=== PATIENT | female | born 1990 | race American Indian/Alaskan Native ===

== ENCOUNTER 2017-05-18 17:47 | Emergency (ER) | payer SELFPAY ==
[2017-05-18 18:13] VITALS: BP 113/71
[2017-05-18 19:02] LABS: Bilirubin,Urine NEG (Negative); Blood,Urine NEG (Negative); Ketones,Urine NEG (Negative); Leukocyte Esterase,Urine MOD (Negative); Mucus,Urine FEW /HPF; Nitrite,Urine NEG (Negative); Protein,Urine <15 mg/dL mg/dL (Negative); Urobilinogen,Urine < 2.0 mg/dL (<2.0)
[2017-05-18 19:34] LABS: Anion Gap 17 mmol/L; BUN/Creatinine Ratio 13.33; Blood Urea Nitrogen 12 mg/dL (7-17); Calcium 9.4 mg/dL (8.4-10.2); Carbon Dioxide 26 mmol/L (22-30); Chloride 104.1 mmol/L (98-107); Glucose 67 mg/dL (65-100); Potassium 4.6 mmol/L (3.6-5.0); Sodium 142 mmol/L (137-145)
[2017-05-18] MEDS ORDERED: ZITHROMAX PO ONE (20:26)
[2017-05-18] MEDS ORDERED: FLAGYL PO ONE (20:27)
[2017-05-18] MEDS ORDERED: XYLOCAINE 1% MPF 5 mL INFILTRATI ONE (20:27)
[2017-05-18] MEDS ORDERED: ROCEPHIN IM ONE (20:27)
[2017-05-18 20:47] LABS: Basophils % (Auto) 0.8 % (0.0-1.8); Eosinophils % (Auto) 0.9 % (0.0-4.3); Hematocrit 36.9 % (30.3-42.9); Hemoglobin 11.6 gm/dl (10.1-14.3); Mean Corpuscular HGB Conc 32 % (30-34); Mean Corpuscular Volume 79 fl (79-97); Platelet Count 234 K/mm3 (140-440); Red Blood Count 4.67 M/mm3 (3.65-5.03); White Blood Count 6.3 K/mm3 (4.5-11.0)
[2017-05-18 20:49] LABS: Mean Corpuscular Hemoglobin 25 pg (28-32)
--- NOTE | 2017-05-18 20:58 | Emergency Department Report ---
Entered by PILAR HANSEN, acting as scribe for HANNAH LOPEZ PA. ED Female HPI - General Chief complaint: Abdominal Pain Stated complaint: STD SCREENING Time Seen by Provider: 05/18/17 19:30 Source: patient Mode of arrival: Ambulatory Limitations: No Limitations - History of Present Illness Initial comments: 26 y/o female with no significant PMHx presents to the ED c/o urinary frequency and intermittent pelvic pain that began 4 weeks ago. Aggravated with movement and alleviated with nothing. Denies vaginal bleeding, vaginal discharge, fever, chills, nausea, vomiting, and dysuria. Patient also requests to get tested for STDs. Notes she is sexually active without protection with a known partner. Reports her partner was seen in this ED today for STD treatment. LMP 2016. NKDA. CREWS Complaint: pelvic pain, other (urinary frequency) Onset/Timin -: week(s) Location: other (pelvic) Radiation: non-radiating Severity: mild Severity scale (0 -10): 3 Quality: aching Consistency: intermittent Improves with: none Worsens with: movement Last Menstrual Period: 03/29/17 EDC: 01/03/18 Associated Symptoms: denies other symptoms, abdominal pain (intermittent pelvic pain), other (urinary frequency). denies: vaginal discharge, vaginal bleeding, nausea/vomiting, fever/chills, headaches, loss of appetite, dysuria, hematuria, rash, seizure, syncope, weakness - Related Data Sexually active: Yes Previous Rx's Medication Instructions Recorded Last Taken Type Permethrin 5% [Acticin 5% CREAM] 1 applicatio TP ONCE #1 tube 07/03/15 Unknown Rx diphenhydrAMINE [Benadryl CAP] 25 mg PO Q6HR PRN #30 capsule 07/03/15 Unknown Rx oxyCODONE /ACETAMINOPHEN [Percocet 1 tab PO Q6HR PRN #30 tablet 01/06/16 Unknown Rx 5/325] Acetaminophen/Codeine [Tylenol #3] 1 tab PO Q6H PRN #15 tab 02/01/16 Unknown Rx HYDROcodone/APAP 7.5-325 [[place] 1 each PO QHS #5 tablet 02/01/16 Unknown Rx 7.5/325] Ibuprofen [Motrin 600 MG tab] 600 mg PO Q8H PRN #20 tablet 05/18/17 Unknown Rx Sulfamethoxazole/Trimethoprim 1 each PO BID #20 tablet 05/18/17 Unknown Rx [Bactrim DS TAB] Allergies Allergy/AdvReac Type Severity Reaction Status Date / Time No Known Allergies Allergy Verified 07/03/15 15:52 ED Review of Systems Comment: All other systems reviewed and negative Constitutional: denies: chills, diaphoresis, fever, weakness Eyes: denies: eye pain, eye discharge, vision change ENT: denies: ear pain, throat pain Respiratory: denies: cough, shortness of breath, wheezing Cardiovascular: denies: chest pain, palpitations Endocrine: no symptoms reported Gastrointestinal: abdominal pain (intermittent pelvic pain). denies: nausea, vomiting, diarrhea Genitourinary: urgency, frequency. denies: dysuria, hematuria, discharge, abnormal menses, dyspareunia Musculoskeletal: denies: back pain, joint swelling, arthralgia Skin: denies: rash, lesions Neurological: denies: headache, weakness, numbness, paresthesias Hematological/Lymphatic: denies: easy bleeding, easy bruising ED Past Medical Hx - Past Medical History Previous Medical History?: No - Surgical History Past Surgical History?: No - Social History Smoking Status: Current Every Day Smoker Substance Use Type: Alcohol, Marijuana - Medications Home Medications: Home Medications Medication Instructions Recorded Confirmed Last Taken Type Permethrin 5% [Acticin 5% CREAM] 1 applicatio TP ONCE #1 tube 07/03/15 Unknown Rx diphenhydrAMINE [Benadryl CAP] 25 mg PO Q6HR PRN #30 capsule 07/03/15 Unknown Rx oxyCODONE /ACETAMINOPHEN [Percocet 1 tab PO Q6HR PRN #30 tablet 01/06/16 Unknown Rx 5/325] Acetaminophen/Codeine [Tylenol #3] 1 tab PO Q6H PRN #15 tab 02/01/16 Unknown Rx HYDROcodone/APAP 7.5-325 [[place] 1 each PO QHS #5 tablet 02/01/16 Unknown Rx 7.5/325] Ibuprofen [Motrin 600 MG tab] 600 mg PO Q8H PRN #20 tablet 05/18/17 Unknown Rx Sulfamethoxazole/Trimethoprim 1 each PO BID #20 tablet 05/18/17 Unknown Rx [Bactrim DS TAB] ED Physical Exam - General Limitations: No Limitations General appearance: alert, in no apparent distress - Head Head exam: Present: atraumatic, normocephalic - Eye Eye exam: Present: normal appearance, PERRL, EOMI Pupils: Present: normal accommodation - ENT ENT exam: Present: normal exam, mucous membranes moist, normal external ear exam - Neck Neck exam: Present: normal inspection, full ROM. Absent: tenderness, meningismus, lymphadenopathy - Respiratory Respiratory exam: Present: normal lung sounds bilaterally. Absent: respiratory distress, wheezes, rales, rhonchi, stridor, accessory muscle use, decreased breath sounds - Cardiovascular Cardiovascular Exam: Present: regular rate, normal rhythm, normal heart sounds. Absent: systolic murmur, diastolic murmur, rubs, gallop - GI/Abdominal GI/Abdominal exam: Present: soft, normal bowel sounds. Absent: distended, tenderness, guarding, rebound, rigid - Extremities Exam Extremities exam: Present: normal inspection, full ROM - Back Exam Back exam: Present: normal inspection, full ROM. Absent: CVA tenderness (R), CVA tenderness (L) - Neurological Exam Neurological exam: Present: alert, oriented X3 - Psychiatric Psychiatric exam: Present: normal affect, normal mood - Skin Skin exam: Present: warm, dry, intact. Absent: rash ED Course Vital Signs 05/18/17 18:08 Temperature 98.4 F Pulse Rate 89 Respiratory 18 Rate Blood Pressure 113/71 O2 Sat by Pulse 100 Oximetry ED Medical Decision Making - Lab Data Result diagrams: 05/18/17 19:05 05/18/17 19:05 Laboratory Results - last 24 hr 05/18/17 05/18/17 05/18/17 18:30 19:05 19:05 WBC 6.3 RBC 4.67 Hgb 11.6 Hct 36.9 MCV 79 MCH 25 L MCHC 32 RDW 14.0 Plt Count 234 Lymph % (Auto) 27.2 Thomas % (Auto) 8.3 H Eos % (Auto) 0.9 Baso % (Auto) 0.8 Lymph # 1.7 Thomas # 0.5 Eos # 0.1 Baso # 0.0 Seg Neutrophils % 62.8 Seg Neutrophils # 4.0 Carbon Dioxide 26 Anion Gap 17 BUN 12 Creatinine 0.9 Estimated GFR > 60 BUN/Creatinine Ratio 13.33 Glucose 67 Calcium 9.4 HCG, Qual Urine Color Yellow Urine Turbidity Clear Urine pH 7.0 Ur Specific [place] 1.020 Urine Protein <15 mg/dl Urine Glucose (UA) Neg Urine Ketones Neg Urine Blood Neg Urine Nitrite Neg Urine Bilirubin Neg Urine Urobilinogen < 2.0 Ur Leukocyte Esterase Mod Urine WBC (Auto) 12.0 H Urine RBC (Auto) 2.0 U Epithel Cells (Auto) 2.0 Urine Mucus Few 05/18/17 19:05 WBC RBC Hgb Hct MCV MCH MCHC RDW Plt Count Lymph % (Auto) [place] % (Auto) Eos % (Auto) Baso % (Auto) Lymph # Thomas # Eos # Baso # Seg Neutrophils % Seg Neutrophils # Carbon Dioxide Anion Gap BUN Creatinine Estimated GFR BUN/Creatinine Ratio Glucose Calcium HCG, Qual Negative Urine Color Urine Turbidity Urine pH Ur Specific [place] Urine Protein Urine Glucose (UA) Urine Ketones Urine Blood Urine Nitrite Urine Bilirubin Urine Urobilinogen Ur Leukocyte Esterase Urine WBC (Auto) Urine RBC (Auto) U Epithel Cells (Auto) Urine Mucus - Medical Decision Making 26 year-old female presents with urinary tract infection/STD exposure ED course: CBC, BMP, urinalysis, urine test and gonorrhea/chlamydia ordered. Discussed findings with patient. Discussed STD treatment in ED prophylaxis Discussed to follow up with [facility] and her department for further STD testing. 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 Discuss her symptoms return or worsen to return to the ED Vital signs are normal patient is in no acute distress ED Disposition Clinical Impression: Possible exposure to STD, UTI (urinary tract infection) Disposition: - TO HOME OR SELFCARE Is pt being admited?: No Does the pt Need Aspirin: No Condition: Stable Instructions: Sexually Transmitted Diseases (ED), Urinary Tract Infection in Women (ED), Abdominal Pain (ED) Additional Instructions: Follow-up with health department for further STD testing. UA treated for STD prophylaxis the ED today. Particular medications as prescribed for a UTI. Prescriptions: Ibuprofen [Motrin 600 MG tab] 600 mg PO Q8H PRN #20 tablet PRN Reason: Pain Sulfamethoxazole/Trimethoprim [Bactrim DS TAB] 1 each PO BID #20 tablet Referrals: VASQUEZ BOSWELL MD [Primary Care Provider] - 3-5 Days JAY HARDEN MD [Referring] - 3-5 Days [facility] [Outside] - 3-5 Days [facility] [Outside] - 3-5 Days Forms: Accompanied Note, Work/School Release Form(ED) Time of Disposition: 20:35 This documentation as recorded by the JADE coffman JASMINE,accurately reflects the service I personally performed and the decisions made by JOHN álvarez OYINLOLA A, PA.
== END 2017-05-18 21:11 | disposition home or self-care (01) ==
LOC: ED 17:47
DX: N39.0 Urinary tract infection, site not specified (principal); F17.200 Nicotine dependence, unspecified, uncomplicated; F12.90 Cannabis use, unspecified, uncomplicated
CPT/HCPCS: 36415; 80048; 81001; 84703; 85025; 96372; 99283; J0696

== ENCOUNTER 2017-07-15 08:13 | Emergency (ER) | payer SELFPAY ==
[2017-07-15 08:38] LABS: Basophils % (Auto) 0.9 % (0.0-1.8); Eosinophils % (Auto) 1.6 % (0.0-4.3); Hematocrit 35.4 % (30.3-42.9); Hemoglobin 11.3 gm/dl (10.1-14.3); Mean Corpuscular HGB Conc 32 % (30-34); Mean Corpuscular Volume 79 fl (79-97); Platelet Count 258 K/mm3 (140-440); Red Blood Count 4.49 M/mm3 (3.65-5.03); Red Cell Distribution Width 13.6 % (13.2-15.2); White Blood Count 4.9 K/mm3 (4.5-11.0)
[2017-07-15 08:52] LABS: Alanine Aminotransferase 16 units/L (7-56); Albumin 3.9 g/dL (3.9-5); Albumin/Globulin Ratio 1.8 %; Alkaline Phosphatase 54 units/L (35-129); Anion Gap 11 mmol/L; BUN/Creatinine Ratio 12.85; Blood Urea Nitrogen 9 mg/dL (7-17); Carbon Dioxide 27 mmol/L (22-30); Chloride 102.9 mmol/L (98-107); Glucose 95 mg/dL (65-100); Lipase 14 units/L (13-60); Potassium 4.3 mmol/L (3.6-5.0); Sodium 137 mmol/L (137-145); Total Protein 6.1 g/dL (6.3-8.2)
[2017-07-15 08:54] LABS: Mean Corpuscular Hemoglobin 25 pg (28-32)
[2017-07-15 09:44] LABS: Bacteria,Urine 1+ /HPF (Negative); Bilirubin,Urine NEG (Negative); Blood,Urine NEG (Negative); Ketones,Urine NEG (Negative); Leukocyte Esterase,Urine TR (Negative); Mucus,Urine 2+ /HPF; Nitrite,Urine NEG (Negative); Urobilinogen,Urine < 2.0 mg/dL (<2.0)
--- NOTE | 2017-07-15 09:52 | Emergency Department Report ---
Chief Complaint: Abdominal Pain Stated Complaint: PREG, STOMACH CRAMPS, SLIGHT BLEEDING Time Seen by Provider: 07/15/17 09:48 - HPI History of Present Illness: PT states she found out she was on Friday. PT states last night she was vomiting and she had some lower abd pains. PT also states that she noticed pink when she wiped. - ROS Review of Systems: - dysuria + lower r pelvic pain lmp: May, - Exam Vital Signs: Vital Signs 07/15/17 08:18 Temperature 98.2 F Pulse Rate 78 Respiratory 18 Rate Blood Pressure 110/55 O2 Sat by Pulse 100 Oximetry Physical Exam: No cva tenderness wilbur. R pelvic tenderness abd soft and non tender MSE screening note: Focused history and physical exam performed. Due to findings the following was ordered: ABO/ RH and US ED Medical Decision Making - Lab Data Result diagrams: 07/15/17 08:29 07/15/17 08:29 ED Disposition for MSE Condition: Stable Instructions: Abdominal Pain (ED) Referrals: PRIMARY CARE, [Primary Care Provider] - 3-5 Days
--- NOTE | 2017-07-15 11:51 | Ultrasound Report ---
Transvaginal and transabdominal OB ultrasound. History: Pelvic pain. Findings: There is a single IUP with a crown-rump length of 4.8 mm which corresponds to a gestational age of 6 weeks one day. The heart rate is 118 beats per minute. The right ovary is normal. There is a 4.1 cm in diameter cystic lesion in the left ovary. Impression: 1. Viable IUP at 6 weeks one day gestation. 2. Left ovarian cyst.
[2017-07-15 12:19] VITALS: BP 107/54
--- NOTE | 2017-07-15 12:35 | Emergency Department Report ---
ED Female HPI - General Chief complaint: Abdominal Pain Stated complaint: PREG, STOMACH CRAMPS, SLIGHT BLEEDING Time Seen by Provider: 07/15/17 09:48 Source: patient Mode of arrival: Ambulatory Limitations: No Limitations - History of Present Illness MD Complaint: vaginal bleeding, pelvic pain -: Last night Radiation: non-radiating, suprapubic Quality: dull - Related Data Sexually active: Yes : 3 Para: 2 Previous Rx's Medication Instructions Recorded Last Taken Type Permethrin 5% [Acticin 5% CREAM] 1 applicatio TP ONCE #1 tube 07/03/15 Unknown Rx diphenhydrAMINE [Benadryl CAP] 25 mg PO Q6HR PRN #30 capsule 07/03/15 Unknown Rx oxyCODONE /ACETAMINOPHEN [Percocet 1 tab PO Q6HR PRN #30 tablet 01/06/16 Unknown Rx 5/325] Acetaminophen/Codeine [Tylenol #3] 1 tab PO Q6H PRN #15 tab 02/01/16 Unknown Rx HYDROcodone/APAP 7.5-325 [[place] 1 each PO QHS #5 tablet 02/01/16 Unknown Rx 7.5/325] Ibuprofen [Motrin 600 MG tab] 600 mg PO Q8H PRN #20 tablet 05/18/17 Unknown Rx Sulfamethoxazole/Trimethoprim 1 each PO BID #20 tablet 05/18/17 Unknown Rx [Bactrim DS TAB] Nitrofurantoin [place]/M-[place] 100 mg PO Q12HR #14 capsule 07/15/17 Unknown Rx [Macrobid CAP] Ondansetron [Zofran Odt] 4 mg PO Q8HR PRN #14 tab.rapdis 07/15/17 Unknown Rx Allergies Allergy/AdvReac Type Severity Reaction Status Date / Time No Known Allergies Allergy Verified 07/03/15 15:52 ED Review of Systems ROS: Stated complaint: PREG, STOMACH CRAMPS, SLIGHT BLEEDING Other details as noted in HPI Comment: All other systems reviewed and negative Constitutional: denies: chills, fever Respiratory: denies: cough, shortness of breath Cardiovascular: denies: chest pain, palpitations Gastrointestinal: abdominal pain, nausea. denies: vomiting, diarrhea, constipation, hematemesis, melena, hematochezia Genitourinary: urgency, dysuria, frequency. denies: hematuria, discharge Skin: denies: rash Neurological: denies: headache, weakness, numbness ED Past Medical Hx - Past Medical History Previous Medical History?: No - Surgical History Past Surgical History?: No - Social History Smoking Status: Never Smoker Substance Use Type: None - Medications Home Medications: Home Medications Medication Instructions Recorded Confirmed Last Taken Type Permethrin 5% [Acticin 5% CREAM] 1 applicatio TP ONCE #1 tube 07/03/15 Unknown Rx diphenhydrAMINE [Benadryl CAP] 25 mg PO Q6HR PRN #30 capsule 07/03/15 Unknown Rx oxyCODONE /ACETAMINOPHEN [Percocet 1 tab PO Q6HR PRN #30 tablet 01/06/16 Unknown Rx 5/325] Acetaminophen/Codeine [Tylenol #3] 1 tab PO Q6H PRN #15 tab 02/01/16 Unknown Rx HYDROcodone/APAP 7.5-325 [[place] 1 each PO QHS #5 tablet 02/01/16 Unknown Rx 7.5/325] Ibuprofen [Motrin 600 MG tab] 600 mg PO Q8H PRN #20 tablet 05/18/17 Unknown Rx Sulfamethoxazole/Trimethoprim 1 each PO BID #20 tablet 05/18/17 Unknown Rx [Bactrim DS TAB] Nitrofurantoin [place]/M-[place] 100 mg PO Q12HR #14 capsule 07/15/17 Unknown Rx [Macrobid CAP] Ondansetron [Zofran Odt] 4 mg PO Q8HR PRN #14 tab.rapdis 07/15/17 Unknown Rx ED Physical Exam - General Limitations: No Limitations General appearance: alert, in no apparent distress - Eye Eye exam: Present: normal appearance - ENT ENT exam: Present: normal exam - Neck Neck exam: Present: normal inspection - Respiratory Respiratory exam: Present: normal lung sounds bilaterally. Absent: respiratory distress, wheezes, rales, rhonchi - Cardiovascular Cardiovascular Exam: Present: regular rate, normal rhythm, normal heart sounds - GI/Abdominal GI/Abdominal exam: Present: soft, tenderness (suprapubic). Absent: distended, guarding, rebound, rigid, normal bowel sounds, mass, bruit, pulsatile mass - Extremities Exam Extremities exam: Present: normal inspection. Absent: calf tenderness - Back Exam Back exam: Present: normal inspection. Absent: CVA tenderness (R), CVA tenderness (L) - Neurological Exam Neurological exam: Present: alert, oriented X3, CN II-XII intact, normal gait - Skin Skin exam: Present: warm, intact, normal color ED Course Vital Signs 07/15/17 07/15/17 08:18 12:19 Temperature 98.2 F 98.1 F Pulse Rate 78 74 Respiratory 18 18 Rate Blood Pressure 110/55 Blood Pressure 107/54 [Right] O2 Sat by Pulse 100 100 Oximetry - Reevaluation(s) Reevaluation #1: 07/15/17 12:35 Patient's sleeping in bed comfortably was no acute distress no vomiting. ED Medical Decision Making - Lab Data Result diagrams: 07/15/17 08:29 07/15/17 08:29 - Radiology Data Radiology results: report reviewed Pelvic ultrasound/ ultrasound showed 6 weeks viable fetus Critical care attestation.: If time is entered above; I have spent that time in minutes in the direct care of this critically ill patient, excluding procedure time. ED Disposition Clinical Impression: Abdominal pain affecting , UTI in , antepartum Disposition: DC-01 TO HOME OR SELFCARE Is pt being admited?: No Condition: Stable Instructions: Abdominal Pain (ED), Urinary Tract Infection in Women (ED) Prescriptions: Nitrofurantoin [place]/M-[place]ryst [Macrobid CAP] 100 mg PO Q12HR #14 capsule Ondansetron [Zofran Odt] 4 mg PO Q8HR PRN #14 tab.rapdis PRN Reason: Nausea And Vomiting Referrals: PRIMARY CARE, [Primary Care Provider] - 3-5 Days
== END 2017-07-15 13:12 | disposition home or self-care (01) ==
LOC: ED 08:13
DX: O23.41 Unspecified infection of urinary tract in pregnancy, first trimester (principal); Z3A.01 Less than 8 weeks gestation of pregnancy
CPT/HCPCS: 36415; 76801; 76817; 80053; 81001; 83690; 84702; 84703; 85025; 86900; 86901; 99284

== ENCOUNTER 2018-03-03 07:23 | Inpatient (IN) | payer MEDICAID ==
[2018-03-03] MEDS: LACTATED RINGERS 1,000 ML IV SCH ×2 (08:23→11:10)
[2018-03-03 08:39] LABS: Basophils % (Auto) 0.3 % (0.0-1.8); Eosinophils % (Auto) 0.5 % (0.0-4.3); Hematocrit 33.7 % (30.3-42.9); Hemoglobin 11.2 gm/dl (10.1-14.3); Lymphocytes # (Auto) 2.5 K/mm3 (1.2-5.4); Lymphocytes % (Auto) 28.2 % (13.4-35.0); Mean Corpuscular HGB Conc 33 % (30-34); Mean Corpuscular Volume 78 fl (79-97); Monocytes # (Auto) 0.9 K/mm3 (0.0-0.8); Monocytes % (Auto) 10.5 % (0.0-7.3); Platelet Count 304 K/mm3 (140-440); Red Blood Count 4.34 M/mm3 (3.65-5.03); Red Cell Distribution Width 14.1 % (13.2-15.2)
[2018-03-03 08:40] LABS: Mean Corpuscular Hemoglobin 26 pg (28-32)
--- NOTE | 2018-03-03 08:53 | History and Physical Report ---
History of Present Illness Date of examination: 03/03/18 Date of admission: 03/03/18 07:24 Chief complaint: contractions History of present illness: Pt is a 27 year old female CÉSAR 03/09/18 at 39w1d presents with regular painful contractions and cervical change from 50/-33 in the office to /-2 on admission. She denies leakage of fluid. She has had care at [facility] since 11 wks complicated by left ovarian cyst in the first trimester (resolved on follow up ultrasound), genital herpes without lesion or prodrome, tobacco use, Rubella non-immune status, IUGR at 33 with subsequent return to normal weight. She is GBS negative. 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 History: chlamydia (remote from this ), fibroids, herpes Family/Genetic History: heart disease, hypertension Social history: no significant social history - Obstetrical History Expected Date of Delivery: 03/09/18 Actual Gestation: 39 Week(s) 1 Day(s) : 3 Para: 1 Hx # Term Pregnancies: 1 Number of Pregnancies: 0 Spontaneous Abortions: 0 Induced : 1 Number of Living Children: 1 Medications and Allergies Allergies Allergy/AdvReac Type Severity Reaction Status Date / Time No Known Allergies Allergy Verified 07/03/15 15:52 Home Medications Medication Instructions Recorded Confirmed Last Taken Type No Known Home Medications [No 03/03/18 03/03/18 Unknown History Reported Home Medications] Active Meds: Active Medications Lactated Ringer's (Lactated Ringers) 1,000 mls @ 125 mls/hr IV DIRECT ISMA Last Admin: 03/03/18 08:23 Dose: 125 mls/hr Ampicillin Sodium (Ampicillin/Ns 1 Gm/50 Ml) 1 gm in 50 mls @ 100 mls/hr IV Q4HR ISMA; Protocol Ampicillin Sodium (Polycillin/Ns 2 Gm/100 Ml) 2 gm in 100 mls @ 100 mls/hr IV ONCE ISMA; Protocol Review of Systems All systems: negative - Vital Signs Vital signs: Vital Signs Temp Resp 97.7 F 20 03/03/18 07:48 03/03/18 07:48 Temp Pulse Resp BP Pulse Ox 97.7 F 62 20 122/78 100 03/03/18 07:48 03/03/18 08:51 03/03/18 07:48 03/03/18 08:51 03/03/18 08:41 - Physical Exam Breasts: Positive: deferred Cardiovascular: Regular rate Lungs: Positive: Clear to auscultation Abdomen: Positive: soft Genitourinary (Female): Positive: normal external genitalia Uterus: Positive: enlarged (gravid ) Extremities: Positive: normal - Obstetrical FHR: auscultation normal Uterine Contraction Monitor Mode: External Cervical Dilatation: 6 Cervical Effacement Percentage: 90 station: -1 Uterine Contraction Pattern: Regular Uterine Tone Measurement Phase: Resting Uterine Contraction Intensity: Moderate Results Result Diagrams: 03/03/18 08:10 Abnormal lab results 03/03/18 Range/Units 08:10 MCV 78 L (79-97) fl MCH 26 L (28-32) pg [place] % (Auto) 10.5 H (0.0-7.3) % [place] # 0.9 H (0.0-0.8) K/mm3 All other labs normal. Assessment and Plan A: IUP at 39w1d Active labor GBS negative Rubella Non-Immune Genital herpes without lesion or prodrome P: Admit to labor and delivery Routine intrapartum care.
[2018-03-03] MEDS ORDERED: POLYCILLIN/NS 2 GM/100 ML 2 GM/100 ML BAG IV SCH (09:00)
[2018-03-03] MEDS ORDERED: PITOCin/NS 20 UNIT/1000ML DRIP 20,000 MILLIUNITS/1,000 ML BAG IV ONE (09:18)
[2018-03-03] MEDS ORDERED: SUBLIMAZE ONE (09:19)
[2018-03-03] MEDS ORDERED: BRETHINE SUB-Q PRN (09:31)
[2018-03-03] MEDS ORDERED: SUBLIMAZE IV PRN (09:31)
[2018-03-03] MEDS ORDERED: MINERAL OIL PO PRN (09:31)
[2018-03-03] MEDS ORDERED: XYLOCAINE 2% INFILTRATI ONE (09:31)
[2018-03-03] MEDS ORDERED: ePHEDrine SULFATE IV PRN (09:31)
[2018-03-03] MEDS ORDERED: BRETHINE IVP PRN (09:31)
[2018-03-03] MEDS ORDERED: LACTATED RINGERS 1,000 ML IV SCH (10:00)
[2018-03-03] MEDS ORDERED: PITOCin/NS 20 UNIT/1000ML DRIP 20 UNITS/1,000 ML BAG IV SCH ×2 (10:00→15:00)
[2018-03-03] MEDS ORDERED: AMPICILLIN/NS 1 GM/50 ML 1 GM/50 ML BAG IV SCH (10:00)
[2018-03-03] MEDS ORDERED: PITOCin/NS 30 UNIT/500ML 30 UNITS/500 ML BAG IV SCH (10:00)
[2018-03-03] MEDS ORDERED: XYLOCAINE CARDIAC IV ONE (12:21)
[2018-03-03] MEDS ORDERED: TORADOL IV ONE (12:35)
--- NOTE | 2018-03-03 13:09 | Procedure Note ---
OB Delivery Note - Delivery Date of Delivery: 03/03/18 Surgeon: MARY BORGES Estimated blood loss: 300cc - Vaginal Delivery presentation: vertex Delivery position: OA Intrapartum events: PROM->1hr before delivery, mult.variable deceleratio Delivery induction: none Delivery augmentation: rupture of membranes, pitocin Delivery monitor: external FHT, external uterine Route of delivery: Delivery placenta: spontaneous Delivery cord: 3 umbilical vessels Episiotomy: none Delivery laceration: 1st degree Delivery repair: vicryl Anesthesia: local, intravenous Delivery comments: Pt progressed rapidly from 7 cm to complete/complete/+3 and pushed to deliver a viable female over intact perineum via under IV anesthesia attended by Stephanie Cortez RN while on-call MD en route. bulb suctioned and placed on maternal abdomen for bonding. Cord clamped and cut. Upon on-call MD entry into the room, on maternal chest for skin to skin and placenta in situ. Placenta delivered spontaneously (3VC). Vagina and perineum explored. First degree perineal laceration repaired with a figure of eight of 3-0 Vicryl. EBL 300 mL. - A at 1 minute: 8 at 5 minutes: 9 Gender: Female (3312g (7lb 5 oz) @ 1207 pm)
[2018-03-03] MEDS ORDERED: TUCKS PAD TP PRN (14:10)
[2018-03-03] MEDS ORDERED: MILK OF MAGNESIA PO PRN (14:10)
[2018-03-03] MEDS ORDERED: TYLENOL PO PRN (14:10)
[2018-03-03] MEDS ORDERED: LANSINOH TP PRN ×2 (14:10)
[2018-03-03] MEDS ORDERED: PHENERGAN PR PRN (14:10)
[2018-03-03] MEDS ORDERED: PHENERGAN PO PRN (14:10)
[2018-03-03] MEDS ORDERED: DULCOLAX PR PRN (14:10)
[2018-03-03] MEDS ORDERED: ZOFRAN IV PRN (14:10)
[2018-03-03] MEDS ORDERED: SODIUM CHLORIDE FLUSH SYRINGE 10 ML IV SCH (14:10)
[2018-03-03] MEDS ORDERED: DERMOPLAST TP PRN (14:10)
[2018-03-03] MEDS ORDERED: BENADRYL PO PRN (14:10)
[2018-03-03] MEDS: MOTRIN PO SCH (15:00)
[2018-03-03] MEDS: NORCO 5/325 PO PRN (18:56)
[2018-03-04] MEDS: MOTRIN PO SCH ×4 (00:05→19:30)
--- NOTE | 2018-03-04 08:35 | Progress Note ---
Assessment and Plan A/P PPD1 s/p doine well desires depo for cotnrol continue routine PP orders d/c home tomorrow to f/u in 4 weeks Subjective - Subjective Date of service: 03/04/18 Principal diagnosis: s/p Patient reports: appetite normal, voiding normally, pain well controlled, flatus , ambulating normally : doing well, nursing well Objective - Vital Signs Latest vital signs: Vital Signs Temp Pulse Resp BP BP Pulse Ox 03/04/18 01:01 98.6 F 59 L 20 108/56 97 03/03/18 20:47 98.8 F 55 L 20 113/61 03/03/18 16:30 51 L 20 108/62 03/03/18 14:35 98.3 F 51 L 20 107/54 100 03/03/18 13:17 58 L 120/74 03/03/18 13:02 60 117/69 03/03/18 12:48 67 116/77 03/03/18 12:11 94 H 83 L 03/03/18 12:10 72 98 03/03/18 12:09 60 111/84 03/03/18 11:59 64 98 03/03/18 11:54 58 L 97 03/03/18 11:53 60 94 03/03/18 11:49 63 99 03/03/18 11:44 62 99 03/03/18 11:42 81 94 03/03/18 11:39 62 98 03/03/18 11:34 66 97 03/03/18 11:29 65 97 03/03/18 11:24 62 94 03/03/18 11:22 62 94 03/03/18 11:19 59 L 95 03/03/18 11:14 63 96 03/03/18 11:13 64 93 03/03/18 11:09 61 95 03/03/18 11:04 62 94 03/03/18 11:00 20 03/03/18 10:59 57 L 96 03/03/18 10:54 62 96 03/03/18 10:51 58 L 103/50 03/03/18 10:49 61 98 03/03/18 10:44 61 97 03/03/18 10:42 70 94 03/03/18 10:39 58 L 97 03/03/18 10:37 63 94 03/03/18 10:34 63 97 03/03/18 10:29 61 95 03/03/18 10:24 63 99 03/03/18 10:20 93 03/03/18 10:19 61 97 03/03/18 10:14 58 L 96 03/03/18 10:09 64 96 03/03/18 10:04 64 98 03/03/18 09:59 64 98 03/03/18 09:57 64 94 03/03/18 09:54 62 96 03/03/18 09:49 66 98 03/03/18 09:44 57 L 96 03/03/18 09:39 82 97 03/03/18 09:34 98 H 97 03/03/18 09:29 93 03/03/18 08:51 62 122/78 03/03/18 08:41 58 L 100 03/03/18 08:36 59 L 99 Intake and Output 03/03/18 03/04/18 03/04/18 23:59 07:59 15:59 Intake Total 360 360 Balance 360 360 Intake: Oral 360 Intake, Free Water 360 Other: Total, Intake Amount 360 # Voids Void 400 2 - Exam Breasts: Present: normal Cardiovascular: Present: Regular rate, Normal S1 Lungs: Present: Clear to auscultation, Normal air movement Abdomen: Present: normal appearance, soft, normal bowel sounds. Absent: distention, tenderness, guarding Vulva: both: normal Uterus: Present: normal, firm, fundal height below umbilicus. Absent: bogginess , tenderness Extremities: Present: normal Deep Tendon Reflex Grade: Normal +2 - Labs Labs: Abnormal lab results 03/03/18 Range/Units 08:10 MCV 78 L (79-97) fl MCH 26 L (28-32) pg [place] % (Auto) 10.5 H (0.0-7.3) % [place] # 0.9 H (0.0-0.8) K/mm3
--- NOTE | 2018-03-04 08:38 | Discharge Summary ---
Providers - Providers Date of Admission: 03/03/18 07:24 Date of discharge: 03/05/18 Attending physician: MARY BORGES 03/03/18 14:10 Consult to Temporary Receptionist [CONS] Routine Reason For Exam: assistance with , SNS Primary care physician: MARY BORGES Hospitalization Reason for admission: active labor Delivery: Episiotomy: none Laceration: none Incision: normal, dry Other procedures: none complications: none Discharge diagnosis: IUP at term delivered baby: female Condition at discharge: Good Disposition: DC-01 TO HOME OR SELFCARE Plan - Discharge Medications Prescriptions: Ferrous Sulfate 325 mg PO BID #60 tablet. HYDROcodone/APAP 5-325 [[place] 5/325] 1 each PO Q6HR PRN #20 tablet PRN Reason: Pain Ibuprofen [Motrin] 600 mg PO Q8H PRN #30 tablet PRN Reason: Pain - Provider Discharge Summary Activity: routine, no sex for 6 weeks Diet: routine Instructions: routine Additional instructions: [] Smoking cessation referral if applicable(refer to patient education folder for contact #) [] Refer to [facility] Booklet Call your doctor immediately for: * Fever > 100.5 * Heavy vaginal bleeding ( >1 pad per hour) * Severe persistent headache * Shortness of breath * Reddened, hot, painful area to leg or breast * Drainage or odor from incision. * Keep incision clean and dry at all times and follow doctor's instructions regarding bathing/showering - Follow up plan Follow up: MARY BORGES MD [Primary Care Provider] - 03/31/18
[2018-03-04 08:49] LABS: Hematocrit 31.1 % (30.3-42.9); Hemoglobin 9.9 gm/dl (10.1-14.3)
[2018-03-04] MEDS ORDERED: M-M-R II VACCINE SUB-Q ONE (13:19)
[2018-03-04] MEDS ORDERED: BOOSTRIX IM ONE (13:19)
[2018-03-04] MEDS: NORCO 5/325 PO PRN (15:10)
[2018-03-05] MEDS: MOTRIN PO SCH ×3 (00:19→12:05)
[2018-03-05 15:24] VITALS: BP 109/71
== END 2018-03-05 15:30 | disposition home or self-care (01) | DRG 774 ==
LOC: TRG 07:23 → LD 07:24 → TRG 07:31 → OB 14:03
PROVIDERS: ADMIT Obstetrics & Gynecology; ATTEND Obstetrics & Gynecology
PROC: 10E0XZZ Delivery of Products of Conception, External Approach (ICD-10-PCS; principal; 2018-03-03)
PROC: 0HQ9XZZ Repair Perineum Skin, External Approach (ICD-10-PCS; 2018-03-03)
DX: O98.32 Other infections with a predominantly sexual mode of transmission complicating childbirth (principal); A60.00 Herpesviral infection of urogenital system, unspecified; O42.02 Full-term premature rupture of membranes, onset of labor within 24 hours of rupture; O76 Abnormality in fetal heart rate and rhythm complicating labor and delivery; O70.0 First degree perineal laceration during delivery; Z3A.39 39 weeks gestation of pregnancy; Z37.0 Single live birth
CPT/HCPCS: 36415; 85014; 85018; 85025; 86592; 86850; 86900; 86901; 99211; G0463; J1885; J2001; J2590; J3010; J7120

== ENCOUNTER 2019-03-26 21:44 | Emergency (ER) | payer MEDICAID ==
--- NOTE | 2019-03-26 21:56 | Event Note ---
ED Screening Note ED Screening Note: pt states she hit her head on a metal basket at work states she has a laceration to the scalp no LOC states she feels dizziness no N/V unsure of last tetanus immunization no pMHx no allergies to meds +smoker non drinker no drug use This initial assessment/diagnostic orders/clinical plan/treatment(s) is/are subject to change based on patients health status, clinical progression and re- assessment by fellow clinical providers in the ED. Further treatment and workup at subsequent clinical providers discretion. Patient/guardian urged not to elope from the ED as their condition may be serious if not clinically assessed and managed. Initial orders include: CT head, tetanus immunization
--- NOTE | 2019-03-26 21:58 | Emergency Department Report ---
Blank Doc - Documentation Documentation: had tetanus immunization on 02/2018
[2019-03-26 23:10] LABS: Bacteria,Urine 2+ /HPF (Negative); Bilirubin,Urine NEG (Negative); Blood,Urine NEG (Negative); Color,Urine Yellow (Yellow); Mucus,Urine 3+ /HPF; Protein,Urine <15 mg/dL mg/dL (Negative); Urobilinogen,Urine < 2.0 mg/dL (<2.0)
[2019-03-26 23:11] LABS: HCG Qualitative,Urine Negative (Negative)
--- NOTE | 2019-03-26 23:47 | Cat Scan Report ---
PROCEDURE: CT HEAD/BRAIN WO CON TECHNIQUE: Computerized tomography of the head was performed without contrast material. CT DOSE LENGTH PRODUCT: 805.4 mGycm HISTORY: hit head on metal basket, abrasion, dizziness COMPARISONS: None . FINDINGS: Skull and scalp: Normal . Paranasal sinuses: Normal . Ventricles and subarachnoid spaces: Normal . Cerebrum: No evidence of hemorrhage, acute infarction or mass . Cerebellum and brainstem: No evidence of hemorrhage, acute infarction or mass . Vasculature: Normal . Other: None . ASPECTS: 10 IMPRESSION: Normal Examination . This document is electronically signed by Niyah Vasquez DO., March 26 2019 11:45:40 PM ET
[2019-03-27] MEDS ORDERED: TORADOL IM ONE (01:01)
[2019-03-27] MEDS ORDERED: FIORICET PO ONE (01:02)
[2019-03-27] MEDS ORDERED: ZOFRAN ODT PO ONE (01:02)
--- NOTE | 2019-03-27 02:12 | Emergency Department Report ---
ED Head Trauma HPI - General Chief complaint: Head Injury Stated complaint: HEAD INJURY Time Seen by Provider: 03/26/19 21:53 Source: patient Mode of arrival: Ambulatory Limitations: No Limitations - History of Present Illness Initial comments: Patient is a 28-year-old -[place] female with no past medical history who presents to the ED with complaint of acute onset persistent severe headache with small puncture wound on the right temporal area after she accidentally hit her head against a metallic cart on the right temporal area coursing the puncture wound and severe headache for the last 3 hours. Patient states that she felt lightheaded immediately after the incident and that her headache has worsened in the last one hour. Patient denies loss of consciousness, syncope, seizures, dizziness, change in vision, change in speech, neck pain, nausea and vomiting, chest pain or shortness of breath or fall. MD Complaint: head injury (right parietal), head pain (right parietal area with small puncture) -: Sudden, hour(s) (3) Arrival Conditions: Negative: C-spine immobilization present, spinal board immobilization present Mechanism of Injury: work related injury, machine or tool related (metallic cart hit her head at work) Location: parietal (right) Loss of Consciousness: no Previous Trauma to this Area: No Place: work Severity: severe Severity scale (0 -10): 7 Quality: sharp, aching Consistency: constant Provoking factors: none known Other Injuries: laceration (puncture wound) Associated Symptoms: denies other symptoms. denies: confusion, amnesia, repe titive questioning, vision changes, nausea, vomiting, vertigo, syncope, numbness, weakness, tingling, neck pain, other - Related Data Previous Rx's Medication Instructions Recorded Last Taken Type Ferrous Sulfate 325 mg PO BID #60 tablet. 03/04/18 Unknown Rx HYDROcodone/APAP 5-325 [[place] 1 each PO Q6HR PRN #20 tablet 03/04/18 Unknown Rx 5/325] Butalb/Acetamin/Caff 50-325-40 1 - 2 each PO Q4H PRN #15 tablet 03/27/19 Unknown Rx [Fioricet 50-325-40] Cyclobenzaprine HCl [Flexeril 5 MG 5 mg PO Q8H PRN #12 tablet 03/27/19 Unknown Rx TAB] Ibuprofen [Motrin 600 MG tab] 600 mg PO Q8H PRN #20 tablet 03/27/19 Unknown Rx Allergies/Adverse reactions: Allergies Allergy/AdvReac Type Severity Reaction Status Date / Time No Known Allergies Allergy Verified 07/03/15 15:52 ED Review of Systems ROS: Stated complaint: HEAD INJURY Other details as noted in HPI Comment: All other systems reviewed and negative Constitutional: denies: chills, fever Eyes: denies: eye pain, eye discharge, vision change ENT: denies: ear pain, throat pain Respiratory: denies: cough, shortness of breath, wheezing Cardiovascular: denies: chest pain, palpitations Endocrine: no symptoms reported. denies: see HPI, excessive sweating, flushing, intolerance to cold Gastrointestinal: denies: abdominal pain, nausea, diarrhea Genitourinary: denies: urgency, dysuria, discharge Musculoskeletal: denies: back pain, joint swelling, arthralgia Skin: other (Small puncture wound on right parietal area). denies: rash, lesions Neurological: headache, other (lightheadedness). denies: weakness, paresthesias Psychiatric: denies: anxiety, depression Hematological/Lymphatic: denies: easy bleeding, easy bruising ED Past Medical Hx - Past Medical History Previous Medical History?: No Hx Hypertension: No Hx Congestive Heart Failure: No Hx Diabetes: No Hx Deep Vein Thrombosis: No Hx Renal Disease: No Hx Sickle Cell Disease: No Hx Seizures: No Hx Asthma: No Hx COPD: No Hx HIV: No - Surgical History Past Surgical History?: No - Social History Smoking Status: Never Smoker Substance Use Type: None - Medications Home Medications: Home Medications Medication Instructions Recorded Confirmed Last Taken Type Ferrous Sulfate 325 mg PO BID #60 tablet. 03/04/18 Unknown Rx HYDROcodone/APAP 5-325 [[place] 1 each PO Q6HR PRN #20 tablet 03/04/18 Unknown Rx 5/325] Butalb/Acetamin/Caff 50-325-40 1 - 2 each PO Q4H PRN #15 tablet 03/27/19 Unknown Rx [Fioricet 50-325-40] Cyclobenzaprine HCl [Flexeril 5 MG 5 mg PO Q8H PRN #12 tablet 03/27/19 Unknown Rx TAB] Ibuprofen [Motrin 600 MG tab] 600 mg PO Q8H PRN #20 tablet 03/27/19 Unknown Rx ED Physical Exam - General Limitations: No Limitations General appearance: alert, in no apparent distress - Head Head exam: Present: other (right parietal area small puncture wound with localized tenderness) - Eye Eye exam: Present: normal appearance, PERRL, EOMI. Absent: scleral icterus, conjunctival injection, periorbital swelling, periorbital tenderness Pupils: Present: normal accommodation - ENT ENT exam: Present: normal exam, normal orophraynx, mucous membranes moist, TM's normal bilaterally, normal external ear exam - Neck Neck exam: Present: normal inspection, full ROM. Absent: tenderness, meningismus, lymphadenopathy, thyromegaly - Respiratory Respiratory exam: Present: normal lung sounds bilaterally. Absent: respiratory distress, wheezes, rales, rhonchi, chest wall tenderness, accessory muscle use, decreased breath sounds, prolonged expiratory - Cardiovascular Cardiovascular Exam: Present: regular rate, normal rhythm, normal heart sounds. Absent: systolic murmur, diastolic murmur, rubs, gallop - GI/Abdominal GI/Abdominal exam: Present: soft, normal bowel sounds. Absent: tenderness, guarding, hyperactive bowel sounds, hypoactive bowel sounds, organomegaly - Rectal Rectal exam: Present: deferred - Extremities Exam Extremities exam: Present: normal inspection, full ROM, normal capillary refill - Back Exam Back exam: Present: normal inspection. Absent: full ROM, tenderness, CVA tenderness (R), CVA tenderness (L), muscle spasm - Neurological Exam Neurological exam: Present: alert, oriented X3, CN II-XII intact, normal gait, reflexes normal - Psychiatric Psychiatric exam: Present: normal affect, normal mood - Skin Skin exam: Present: warm, dry, normal color, other (small puncture wound on right parietal scalp, bleeding controlled). Absent: rash ED Course Vital Signs 03/26/19 21:55 Temperature 98.6 F Pulse Rate 71 Respiratory 18 Rate Blood Pressure 114/69 [Left] O2 Sat by Pulse 99 Oximetry - Reevaluation(s) Reevaluation #1: 03/27/19 02:15 Patient is alert and oriented 3 and is not in distress. Patient is treated with pain in the ED and head CT scan without contrast shows no acute intracranial abnormalities. On reevaluation, patient's pain is well controlled and the patient was discharged home on medications and advised to return to the ED immediately for reevaluation if her symptoms get worse. Patient was otherwise advised to follow-up with her primary care physician in 3-5 days for reevaluation. - Lab Data Lab Results 03/26/19 Range/Units Unknown Urine Color Yellow (Yellow) Urine Turbidity Slightly-cloudy (Clear) Urine pH 6.0 (5.0-7.0) Ur Specific [place] 1.026 (1.003-1.030) Urine Protein <15 mg/dl (Negative) mg/dL Urine Glucose (UA) Neg (Negative) mg/dL Urine Ketones Tr (Negative) mg/dL Urine Blood Neg (Negative) Urine Nitrite Neg (Negative) Urine Bilirubin Neg (Negative) Urine Urobilinogen < 2.0 (<2.0) mg/dL Ur Leukocyte Esterase Sm (Negative) Urine WBC (Auto) 7.0 H (0.0-6.0) /HPF Urine RBC (Auto) 5.0 (0.0-6.0) /HPF U Epithel Cells (Auto) 6.0 (0-13.0) /HPF Urine Bacteria (Auto) 2+ (Negative) /HPF Urine Mucus 3+ /HPF Urine Yeast (Budding) Few /HPF Urine HCG, Qual Negative (Negative) - Radiology Data Radiology results: report reviewed, image reviewed Head CT scan w/o contrast: No acute intracranial abnormalities or hemorrhage - Medical Decision Making Patient is alert and oriented 3 and is not in distress. Patient is treated with pain in the ED and head CT scan without contrast shows no acute intracranial abnormalities. On reevaluation, patient's pain is well controlled and the patient was discharged home on medications and advised to return to the ED immediately for reevaluation if her symptoms get worse. Patient was otherwise advised to follow-up with her primary care physician in 3-5 days for reevaluation. - Differential Diagnosis Scalp contusion; Acute post-traumatic headache; Puncture wound - Core Measures AMI Core Measures Followed: No Measure Exclusions: not indicated - NEXUS Criteria Focal neurological deficit present: No Midline spinal tenderness present: No Altered level of consciousness: No Intoxication present: No Distracting injury present: No NEXUS results: C-Spine can be cleared clinically by these results. Imaging is not required. Critical care attestation.: If time is entered above; I have spent that time in minutes in the direct care of this critically ill patient, excluding procedure time. ED Disposition Clinical Impression: Severe headache Contusion of scalp Qualifiers: Encounter type: initial encounter Qualified Code(s): S00.03XA - Contusion of scalp, initial encounter Puncture wound of scalp Qualifiers: Encounter type: initial encounter Qualified Code(s): S01.03XA - Puncture wound without foreign body of scalp, initial encounter Disposition: TO HOME OR SELFCARE Is pt being admited?: No Does the pt Need Aspirin: No Condition: Stable Instructions: Puncture Wound (ED), Tension Headache (ED), Scalp Contusion in Adults (ED) Additional Instructions: Take medications with food, drink plenty of fluids and follow up with your primary care physician in 5-7 days for reevaluation. Return to the ED immediately if symptoms get worse. Prescriptions: Butalb/Acetamin/Caff 50-325-40 [Fioricet 50-325-40] 1 - 2 each PO Q4H PRN #15 tablet PRN Reason: Headache Cyclobenzaprine HCl [Flexeril 5 MG TAB] 5 mg PO Q8H PRN #12 tablet PRN Reason: Spasms Ibuprofen [Motrin 600 MG tab] 600 mg PO Q8H PRN #20 tablet PRN Reason: Pain Referrals: ELLIS PEREZ MD [Primary Care Provider] - 3-5 Days Time of Disposition: 02:20 Print Language: MOHAWK
[2019-03-27 02:46] VITALS: BP 121/78
== END 2019-03-27 02:47 | disposition home or self-care (01) ==
LOC: ED 21:44
DX: S01.03XA Puncture wound without foreign body of scalp, initial encounter (principal); Z79.899 Other long term (current) drug therapy; W22.8XXA Striking against or struck by other objects, initial encounter; Y93.89 Activity, other specified; Y92.89 Other specified places as the place of occurrence of the external cause; Y99.0 Civilian activity done for income or pay
CPT/HCPCS: 70450; 81001; 81025; 96372; 99284; J1885; Q0162

== ENCOUNTER 2020-11-05 16:04 | Emergency (ER) | payer MEDICAID, OTHER ==
[2020-11-05 16:29] VITALS: BP 116/67
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
== END 2020-11-05 17:43 | disposition home or self-care (01) ==
LOC: ED 16:04
DX: S16.1XXA Strain of muscle, fascia and tendon at neck level, initial encounter (principal); S39.012A Strain of muscle, fascia and tendon of lower back, initial encounter; S46.912A Strain of unspecified muscle, fascia and tendon at shoulder and upper arm level, left arm, initial encounter; S46.911A Strain of unspecified muscle, fascia and tendon at shoulder and upper arm level, right arm, initial encounter; Z79.1 Long term (current) use of non-steroidal anti-inflammatories (NSAID); Z79.899 Other long term (current) drug therapy; V47.5XXA Car driver injured in collision with fixed or stationary object in traffic accident, initial encounter; Y93.89 Activity, other specified; Y92.410 Unspecified street and highway as the place of occurrence of the external cause; Y99.8 Other external cause status
CPT/HCPCS: 72040; 72100

== ENCOUNTER 2020-11-27 14:13 | Emergency (ER) | payer OTHER ==
--- NOTE | 2020-11-27 14:34 | Emergency Department Report ---
- General Chief Complaint: Upper Respiratory Infection Stated Complaint: COVID POSITIVE Time Seen by Provider: 11/27/20 14:27 Source: patient Mode of arrival: Ambulatory Limitations: No Limitations - History of Present Illness Initial Comments: 30-year-old female is emerged from complaining of sinus congestion sinus pressure reports having a positive Covid salivary test on this past think she is been positive for Covid for the last 1 week. Symptoms initially started with with with with diarrhea and and vomiting which has which has resolved and then have progressed to a loss of taste and smell school where she is now MD Complaint: rhinorrhea, nasal congestion, sinus pain Consistency: constant Improves With: nothing Worsens With: nothing Associated Symptoms: rhinorrhea, nasal congestion. denies: myalgias, chest pain, shortness of breath, nausea, vomiting, diarrhea, right sweats, weight loss, epistaxis - Related Data Previous Rx's Medication Instructions Recorded Last Taken Type Ferrous Sulfate 325 mg PO BID #60 tablet. 03/04/18 Unknown Rx HYDROcodone/APAP 5-325 [[place] 1 each PO Q6HR PRN #20 tablet 03/04/18 Unknown Rx 5/325] Butalb/Acetamin/Caff 50-325-40 1 - 2 each PO Q4H PRN #15 tablet 03/27/19 Unknown Rx [Fioricet 50-325-40] Cyclobenzaprine HCl [Flexeril 5 MG 5 mg PO Q8H PRN #12 tablet 03/27/19 Unknown Rx TAB] Ibuprofen [Motrin 600 MG tab] 600 mg PO Q8H PRN #20 tablet 03/27/19 Unknown Rx Naproxen [EC-Naprosyn] 500 mg PO BID PRN #14 tablet. 11/05/20 Unknown Rx dexAMETHasone [Decadron] 4 mg PO Q12H #10 tablet 11/27/20 Unknown Rx Allergies Allergy/AdvReac Type Severity Reaction Status Date / Time No Known Allergies Allergy Verified 07/03/15 15:52 ED Review of Systems ROS: Stated complaint: COVID POSITIVE Other details as noted in HPI Comment: All other systems reviewed and negative ED Past Medical Hx - Past Medical History Previous Medical History?: No Hx Hypertension: No Hx Congestive Heart Failure: No Hx Diabetes: No Hx Deep Vein Thrombosis: No Hx Renal Disease: No Hx Sickle Cell Disease: No Hx Seizures: No Hx Asthma: No Hx COPD: No Hx HIV: No - Surgical History Past Surgical History?: No - Social History Smoking Status: Never Smoker Substance Use Type: None - Medications Home Medications: Home Medications Medication Instructions Recorded Confirmed Last Taken Type Ferrous Sulfate 325 mg PO BID #60 tablet. 03/04/18 Unknown Rx HYDROcodone/APAP 5-325 [[place] 1 each PO Q6HR PRN #20 tablet 03/04/18 Unknown Rx 5/325] Butalb/Acetamin/Caff 50-325-40 1 - 2 each PO Q4H PRN #15 tablet 03/27/19 Unknown Rx [Fioricet 50-325-40] Cyclobenzaprine HCl [Flexeril 5 MG 5 mg PO Q8H PRN #12 tablet 03/27/19 Unknown Rx TAB] Ibuprofen [Motrin 600 MG tab] 600 mg PO Q8H PRN #20 tablet 03/27/19 Unknown Rx Naproxen [EC-Naprosyn] 500 mg PO BID PRN #14 tablet. 11/05/20 Unknown Rx dexAMETHasone [Decadron] 4 mg PO Q12H #10 tablet 11/27/20 Unknown Rx ED Physical Exam - General Limitations: No Limitations General appearance: alert, in no apparent distress - Head Head exam: Present: atraumatic, normocephalic - Eye Eye exam: Present: normal appearance, PERRL, EOMI Pupils: Present: normal accommodation - ENT ENT exam: Present: normal exam, mucous membranes moist, TM's normal bilaterally, other (Nasal congestion erythema to the bilateral turbinate with some swelling to the right mucosa) - Neck Neck exam: Present: normal inspection, full ROM - Respiratory Respiratory exam: Present: normal lung sounds bilaterally. Absent: respiratory distress, wheezes, rales, rhonchi, chest wall tenderness, accessory muscle use, decreased breath sounds - Cardiovascular Cardiovascular Exam: Present: regular rate, normal rhythm. Absent: systolic murmur, diastolic murmur, rubs, gallop - GI/Abdominal GI/Abdominal exam: Present: soft, normal bowel sounds. Absent: tenderness, guarding, hypoactive bowel sounds, organomegaly, mass, bruit - Extremities Exam Extremities exam: Present: normal inspection, normal capillary refill - Back Exam Back exam: Present: normal inspection. Absent: CVA tenderness (R), CVA tenderness (L) - Neurological Exam Neurological exam: Present: alert, oriented X3 - Psychiatric Psychiatric exam: Present: normal affect, normal mood - Skin Skin exam: Present: warm, dry, intact, normal color. Absent: rash Critical care attestation.: If time is entered above; I have spent that time in minutes in the direct care of this critically ill patient, excluding procedure time. ED Disposition Clinical Impression: Nasal congestion Disposition: DC- TO HOME OR SELFCARE Is pt being admited?: No Does the pt Need Aspirin: No Condition: Stable Instructions: Postnasal Drip, Fluticasone nasal spray, How to Perform a Sinus Rinse, COVID-19, COVID-19 Frequently Asked Questions Prescriptions: dexAMETHasone [Decadron] 4 mg PO Q12H #10 tablet Referrals: [facility] [Provider Group] - 3-5 Days
== END 2020-11-27 16:10 | disposition home or self-care (01) ==
LOC: ED 14:13
DX: U07.1 COVID-19 (principal); R09.81 Nasal congestion; J34.89 Other specified disorders of nose and nasal sinuses; Z79.1 Long term (current) use of non-steroidal anti-inflammatories (NSAID); Z79.899 Other long term (current) drug therapy
CPT/HCPCS: 99281